=== PATIENT | female | born 1970 | race Caucasian/White ===

== ENCOUNTER 2016-07-05 11:51 | Emergency (ER) | payer OTHER ==
[~2016-07-05] VITALS: Ht 172.7 cm; Wt 168.0 kg
[2016-07-05] MEDS ORDERED: PROTONIX40 MG PO (13:15)
[2016-07-05] MEDS ORDERED: SYNTHROID175 MCG PO (13:15)
[2016-07-05] MEDS ORDERED: VENTOLIN HFA18 GM IH (13:16)
[2016-07-05] MEDS ORDERED: HYDROCHLOROTHIA25 MG PO (13:16)
[2016-07-05] MEDS ORDERED: KLONOPIN0.5 M1 PO (13:16)
[2016-07-05 15:13] VITALS: BP 122/60
== END 2016-07-05 15:14 | disposition home or self-care (01) ==
LOC: EME 11:51
DX: F32.9 Major depressive disorder, single episode, unspecified (principal); J45.909 Unspecified asthma, uncomplicated; Z01.818 Encounter for other preprocedural examination
CPT/HCPCS: 90837; 99281; 99285